=== PATIENT | male | born 1975 | race African-American/Black ===

== ENCOUNTER 2020-07-30 01:57 | Emergency (ER) | payer OTHER ==
[~2020-07-30] VITALS: Ht 177.8 cm; Wt 99.8 kg
[~2020-07-30 01:57] MED LIST: NOHOMEMEDICATIONS; PERIDEX15 ML SWISH&SPIT
[2020-07-30 03:00] VITALS: BP 108/74
[2020-07-30] MEDS ORDERED: PERCOCET 5-3251 EACH PO (03:00)
[2020-07-30] MEDS ORDERED: NAPROSYN500 M1 PO (03:00)
== END 2020-07-30 03:15 | disposition home or self-care (01) ==
LOC: ER 01:57
DX: S93.402A Sprain of unspecified ligament of left ankle, initial encounter (principal); S60.512A Abrasion of left hand, initial encounter; S60.511A Abrasion of right hand, initial encounter; Z79.899 Other long term (current) drug therapy; Z88.5 Allergy status to narcotic agent; W17.2XXA Fall into hole, initial encounter; Y93.89 Activity, other specified; Y92.098 Other place in other non-institutional residence as the place of occurrence of the external cause; Y99.8 Other external cause status